=== PATIENT | female | born 1955 | race Caucasian/White ===

== ENCOUNTER → 2016-05-19 | Outpatient (CLI) | payer MEDICAID ==
[~2016-05-19] MED LIST: ACETAMINOPHEN500 M3 PO; ADVIL200 MG OR; AVELOX400 MG PO; BETHANECHOL25 MG PO; BUPROPION HCL100 MG PO; CIPRO 500MG TA500 MG PO; DILAUDID4 MG PO; FLEXERIL10 M1 PO; IPRATROPIUM BROM3 M1 IH; KEFLEX 500MG.500 MG PO; LEVOTHROID0.05 MG PO; LORATADINE 10MG10 M1 PO; MACROBID100 M3 PO; MEDROL 4MG TABLE4 MG PO; MIRAPEX0.5 MG OR; MONODOX100 MG PO; MULTI VITAMINS1 TAB PO; NAPROSYN 500MG500 MG PO; PERCOCET 5/3251 EACH PO; PHENERGAN 25MG.25 M1 PO; PREDNISONE 20MG20 MG PO; PYRIDIUM 200MG200 MG PO; SEPTRA DS 800 M1 TAB PO; SYNTHROID 0.0.075 MG PO; TYLENOL 325MG325 MG PO; ULTRAM50 MG PO; VISTARIL25 M1 PO; VOLTAREN100 GM TP; ZOFRAN4 MG PO
--- NOTE | 2016-05-20 08:31 | RADIOLOGY REPORT PS360 ---
HAND-LT-3 VIEWS HISTORY: Post traumatic pain LEFT HAND PAIN COMPARISON: None FINDINGS: There is generalized osteopenia. Nondisplaced fracture involving the distal aspect of the fifth metacarpal with minimal radial angulation of the distal fracture fragment. Nondisplaced fracture also suspected involving the distal shaft of the fourth metacarpal. Seen only on one view. IMPRESSION: Diffuse osteopenia with nondisplaced fractures of the distal aspect of the fourth and fifth metacarpals
== END ==
LOC: RAD 16:13
DX: M79.642 Pain in left hand (principal)

== ENCOUNTER → 2016-07-01 | Outpatient (CLI) | payer MEDICAID ==
--- NOTE | 2016-07-01 12:52 | RADIOLOGY REPORT PS360 ---
[id number] (PINKY)-3 VIEWS CLINICAL INDICATION: Post traumatic pain S/P FALL, PAIN IN LEFT 5TH DIGIT ORDERING PHYSICIAN: Raul Cota MD PATIENT AGE: 60 years COMPARISON: None FINDINGS: Nondisplaced fracture involving the distal shaft of the fifth metacarpal with mild palmar angulation of the distal fracture fragment. There is generalized osteopenia. IMPRESSION: Nondisplaced fracture fifth metacarpal
== END ==
LOC: RAD 10:25
DX: M79.645 Pain in left finger(s) (principal)

== ENCOUNTER 2016-07-27 15:37 | Emergency (ER) | payer MEDICAID ==
[~2016-07-27] VITALS: Ht 154.9 cm; Wt 64.4 kg
[~2016-07-27 15:37] MED LIST changes: -ACETAMINOPHEN500 M3 PO; -ADVIL200 MG OR; -LORATADINE 10MG10 M1 PO; -NAPROSYN 500MG500 MG PO; -VOLTAREN100 GM TP
--- NOTE | 2016-07-27 16:12 | Urgent Treatment Center Report ---
History of Present Issue Date/Time Seen by Provider 07/27/16 0669 Visit Reason Pt arrived:Wheelchair Presenting Problem:PT C/O LEFT WRIST PAIN AND SWELLING SINCE HER LAST PHYSICAL THERAPY APPT THIS PAST THURSDAY Location if Accident: Onset of symptoms date/time:/ or onset unknown for:MEDICAL HX UNKNOWN Have you (or family members/close friends) recently traveled outside the [place]? N If Yes, where/when: Have you had exposure to infectious disease within the past month? TB? Other? Specify: Source patient, RN notes reviewed, family Exam Limitations no limitations Comment Patient has had left wrist pain and swelling X 4-5 days. States it occurred after PT on 07/24/16. She is going to PT due to a wrist fracture in and hand fracture in 05/02. She has done PT several times before without incident but states that they did change to activities she was doing. Was in pain before leaving PT that day and it has continued to get worse. ALLERGIES Coded Allergies: morphine (Intermediate, I-HIVES 04/21/16) Sulfa (Sulfonamide Antibiotics) (Mild, 04/21/16) latex (Mild, 04/21/16) diazepam (From Valium) (UNKNOWN 04/21/16) Uncoded Allergies: VINYL (UNKNOWN 04/04/15) Home Medications Active Scripts Tramadol Hcl (Ultram 50MG) 50 MG PO QIDP PRN pain #10 TAB Prov: 04/21/16 Reported Medications Levothyroxine Sodium (Levothroid) 0.05 MG PO DAILY PRAMIPEXOLE DI-HCL (Mirapex) 0.5 MG OR History Medical History General CAD? No Angina: Yes NH: No Hypertension? No Hyperlipidemia? No CHF? No DVT? No PE? No COPD? No Asthma? Yes Anemia? No GERD? Yes Gastric ulcers? No GI Bleed? No Hernia? No Thyroid Problems? Yes Hypothyroidism? Yes CVA? No Seizures? No Diabetes? No Renal Insuffiency? No UTI? Yes Stones? Yes GB Disease: Yes Nephritic Syndrome? No Asplenia? No Hepatitis? No Sickle Cell Disease? No Arthritis? Yes Migraines? No Cataracts? No Glaucoma? No MRSA? No HIV? No TB? No Anxiety? No Depression? No Cancer? No More? Yes Additional hx: PARKINSONS Immunization HX DT/Tetanus 1-4 YRS Flu LAST YEAR Pneumonia NEVER Surgical Hx Previous Surgery?Y 4 C-SECTIONS CHOLECTOMY REMOVAL OF ADHESIONS CYST REMOVAL 0F OVARIES SHELDON GALLBLADDER BLADDER SLING L HIP REPAIR Family History Family HX Diabetes Yes CAD No Hypertension Yes Hyperlipidemia Yes Cancer No TB No Social History Smoking Hx Smoker: Never Smoker Tobacco: No Alcohol Alcohol: No Review of Systems All Other Systems Reviewed and Negative Musculoskeletal joint pain, joint swelling Physical Exam Vital Signs Vital Signs Date Time Temp Pulse Resp B/P Pulse O2 O2 Flow FiO2 Ox Delivery Rate 07/27 1558 98.0 83 16 142/83 99 07/27 1541 98.0 83 16 142/83 99 General Appearance normal appearance, no apparent distress Respiratory Status No: respiratory distress, trachea midline, chest symmetrical. Cardiovascular normal exam, regular rate/rhythm, no peripheral edema, no gallop, no JVD, no murmur, no rub Peripheral Pulses Pulses normal Yes Extremities inflammation, swelling, decreased ROM, decreased plastic boat buffer strength left wrist Strength 3 Upper Ext (L) Neurologic alert, normal exam, oriented x 3 Medical Decision Making LABS/Meds/Orders Pt receiving controlled substance in ED? No Results/Orders Orders Procedure Date/time Status WRIST-3 VIEWS-LT 07/27 1612 Active XRAY/CT/US XRAY/CT/US XRAY wrist (left) XR interpretation by reviewed by me Xray Results normal/NAD Departure Departure Time of Disposition 1651 Disposition DC Home or Self Care(routine) Clinical Impression Primary Impression: Wrist pain, left Condition STABLE Referrals Cipriano SALTER,Raul (Family): 2 Days-Call Office Patient Instructions DI for Wrist Pain Additional Instructions Call Dr Schroeder if not improving Discharge Counseling Counseled pt/family regarding diagnosis, test results, medications/RX Comment Call Dr Schroeder if not improving; has wrist splint at home from previous fracture ; discuss with PT Prescriptions Current Visit Scripts NAPROXEN (NAPROSYN 500MG TAB) 500 MG PO BID #20 TAB Diclofenac Sodium (Voltaren) 100 GM TP QIDP PRN PAIN #1 100MG at 1659
[2016-07-27] MEDS ORDERED: NAPROSYN 500MG500 MG PO (16:56)
[2016-07-27] MEDS ORDERED: VOLTAREN100 GM TP (16:56)
[2016-07-27 17:11] VITALS: BP 142/83
--- NOTE | 2016-07-28 15:31 | RADIOLOGY REPORT PS360 ---
WRIST-3 VIEWS-LT ORDERING PHYSICIAN : ODESSA CONTI PATIENT AGE: 60 years GENDER: Female INDICATION: PAIN pain left breast. Hyperextended her wrist on and has been hurting since the skull therapy Left wrist pain TECHNIQUE: 3 view COMPARISON: Multiple previous studies left wrist FINDINGS The patient had a fracture through the radial styloid seen March 2016. Period Fracture this same region is identified today. I suspect reviewing this same fracture but difficult exclude slight additional cortical step-off base radial styloid. On reviewing the frontal projection I believe has the same appearance and articular cortical contour as noted on 07/08/2016 thus most likely stable However if this is the site of patient's pain. I would recommend orthopedic follow-up to further evaluate. Given the patient's osteopenia may want to consider this a CT or MR to follow up if persistent pain at radial styloid region The fat plane anterior aspect the wrist is normal and not elevated on today's study which slightly speaks against acute injury but nonspecific. Normal to upper normal with a scapholunate joint noted. It measures up to 2.5 mm.. Upper normal limits but widening in this region can be reflection of disruption of scapholunate ligament at proximal carpal row Stable mild erosive changes at the ulnar styloid again observed. The carpals are intact. No acute fracture evident. Joint spaces are well-maintained at the carpals and MCP joints. The Old fifth metacarpal fracture again noted with mild residual deformity. .--- Impression 1. No definitive acute fracture or findings. 2. There is slight step-off of articular cortex base of radial styloid.-Most likely old feature reflecting prior fracture in this region & given fairly similar appearance in June 2016 as well as 2016 studies. However if persistent pain at region of radial styloid may warrant further evaluation or follow-up. As Noted above 3.. Prominent diffuse demineralization 4. Old healed fracture neck fifth metacarpal
[2016-08-17] MEDS ORDERED: CIPRO 500MG TA500 MG PO (09:30)
[2016-08-17] MEDS ORDERED: ACETAMINOPHEN500 M3 PO (09:31)
[2016-08-17] MEDS ORDERED: ADVIL200 MG OR (09:31)
[2016-08-17] MEDS ORDERED: LORATADINE 10MG10 M1 PO (09:31)
== END 2016-07-27 17:12 | disposition home or self-care (01) ==
LOC: ER 15:37 → UTC 15:48
DX: M79.642 Pain in left hand (principal); K21.9 Gastro-esophageal reflux disease without esophagitis; G20 Parkinson's disease

== ENCOUNTER → 2016-11-28 | Outpatient (CLI) | payer OTHER ==
[~2016-11-28] MED LIST changes: +ACETAMINOPHEN500 M3 PO; +ADVIL200 MG OR; +LEADER OMEPRAZO20 MG PO; +LORATADINE 10MG10 M1 PO; +MIRAPEX 1 MG TAB1 MG PO; -MIRAPEX0.5 MG OR; +MIRAPEX0.5 MG PO; +NAPROSYN 500MG500 MG PO; +OXYCODONE SR 2020 MG PO; +PROMETHAZINE HC25 M1 PO; +VOLTAREN100 GM TP
--- NOTE | 2016-11-28 17:42 | RADIOLOGY REPORT PS360 ---
LUMBAR SPINE 5 VIEWS Ordering Physician: Beulah Carvajal APRN Patient Age: 61 years: Female HISTORY: LOW BACK PAIN back pain pain both hips back onto show 3 months ago with persistent pain TECHNIQUE: 5 view lumbar spine series FINDINGS There is a wedge compression fracture at L1 with nearly 50% loss of height anteriorly- this wedge compression mainly involving superior endplate. There may be very slight posterior displacement of the superior posterior corner of L1 towards spinal canal reflecting scant retropulsion. This fracture previously seen August 2016 CT. There is slight additional sclerosis at the fracture and it appears fairly stable. No appreciable progression impression Otherwise the remaining vertebral bodies appear intact. There is disc space narrowing L4/5 again noted may be scant 1 mm anterolisthesis of L4 on 5 due to the exuberant prominent facet changes at this level at the left greater the right. L3/4 on this intact with perhaps Scant degenerative retrolisthesis L3-on L4. The stomach device overlying the right hip or buttocks with lead overlying right sacrum again noted. Mild levoscoliosis upper L-spine at L1 Level again noted IMPRESSION: The wedge compression fracture at L1 appears fairly stable. Suggestion of early healing at L1 Mild levoscoliosis L1-L2 again noted Prominent degenerative facet changes to the left greater than right at L4/5 again noted. Slight narrowing at L4/5 disc to the left noted, with scant anterolisthesis of L4 on 5 suggested on plain film
== END ==
LOC: RAD 10:38
DX: M54.5 Low back pain (principal)

== ENCOUNTER 2017-01-10 12:04 | Emergency (ER) | payer OTHER ==
[~2017-01-10] VITALS: Ht 154.9 cm; Wt 61.7 kg
--- NOTE | 2017-01-10 12:30 | Urgent Treatment Center Report ---
History of Present Issue Date/Time Seen by Provider 01/10/17 1229 Visit Reason Pt arrived:Walked Presenting Problem:PT STATES SEVERE BACK PAIN RELATED TO PREVIOUS INJURY ON WHEN SHE FELL AT HOME Location if Accident: Onset of symptoms date/time:/ or onset unknown for:MEDICAL HX UNKNOWN Have you (or family members/close friends) recently traveled outside the [place]? N If Yes, where/when: Have you had exposure to infectious disease within the past month? TB? Other? Specify: Source patient, RN notes reviewed, family Exam Limitations no limitations Comment Patient presents with back pain. Says it has been painful for about two weeks. No inciting injury or event prior to this exacerbation of pain, but did have a fracture of her back in August 2016. This was precipitated by a fall and she states that she was in the hospital for a few weeks at that time. She does have pain medicine at home, but states that it is not helping. ALLERGIES Coded Allergies: morphine (Intermediate, I-HIVES 04/21/16) Sulfa (Sulfonamide Antibiotics) (Mild, 04/21/16) latex (Mild, 04/21/16) diazepam (From Valium) (UNKNOWN 04/21/16) sulfamethoxazole (From BACTRIM) (09/24/16) trimethoprim (From BACTRIM) (09/24/16) Uncoded Allergies: VINYL (UNKNOWN 04/04/15) Home Medications Active Scripts ONDANSETRON HCL (Zofran 4MG Tab) 4 MG PO Q8HP PRN NAUSEA AND VOMITING #20 TAB Prov: 09/24/16 Reported Medications Levothyroxine Sodium (Levothroid) 0.05 MG PO DAILY Pramipexole Dihydrochloride (Mirapex 1 Mg Tablet) 0.75 MG PO TID Oxycodone Hcl Sr (Oxycodone Sr 20MG) 20 MG PO Q6HP PRN PAIN PROMETHAZINE HCL (Promethazine 25mg Tab) 25 MG PO Q8HP PRN NAUSEA Omeprazole 20 MG PO DAILY History Medical History General CAD? No Angina: Yes NE: No Hypertension? No Hyperlipidemia? No CHF? No DVT? No PE? No COPD? No Asthma? Yes Anemia? No GERD? Yes Gastric ulcers? No GI Bleed? No Hernia? No Thyroid Problems? Yes Hypothyroidism? Yes CVA? No Seizures? No Diabetes? No Renal Insuffiency? No UTI? Yes Stones? Yes BPH? No GB Disease: Yes Nephritic Syndrome? No Asplenia? No Hepatitis? No Sickle Cell Disease? No Arthritis? Yes Migraines? No Cataracts? No Glaucoma? No MRSA? No HIV? No TB? No Anxiety? No Depression? No Cancer? No More? Yes Additional hx: PARKINSONS Immunization HX DT/Tetanus 1-4 YRS Flu LAST YEAR Pneumonia NEVER Surgical Hx Previous Surgery?Y 4 C-SECTIONS CHOLECTOMY REMOVAL OF ADHESIONS CYST REMOVAL 0F OVARIES SHELDON GALLBLADDER BLADDER SLING L HIP REPAIR Family History Family HX Diabetes Yes CAD No Hypertension Yes Hyperlipidemia Yes Cancer No TB No Social History Smoking Hx Smoker: Never Smoker Tobacco: No Alcohol Alcohol: No Review of Systems All Other Systems Reviewed and Negative Musculoskeletal back pain Physical Exam Vital Signs Vital Signs Date Time Temp Pulse Resp B/P Pulse O2 O2 Flow FiO2 Ox Delivery Rate 01/10 1356 20 01/10 1218 97.8 102 20 154/90 97 General Appearance normal appearance, no apparent distress Respiratory Status No: respiratory distress, trachea midline, chest symmetrical. Lung Sounds bilateral: normal breath sounds, lungs clear. Cardiovascular normal exam, regular rate/rhythm, no peripheral edema, no gallop, no JVD, no murmur, no rub Back normal inspection, decreased range of motion, lower extremity weakness, vertebral tenderness Extremities non-tender, normal range of motion, normal inspection, normal capillary refill Neurologic alert, normal exam, oriented x 3 Mental status normal mood/affect Medical Decision Making LABS/Meds/Orders Pt receiving controlled substance in ED? No Results/Orders Laboratory Tests 01/10/17 1330: Sodium 139, Potassium 4.3, Chloride 103, Carbon Dioxide 31, BUN 15, Creatinine 0.6, Estimated Creat Clear 93, Estimated GFR (MDRD) 101, Glucose 101, Calcium 10.0 Current Medication Orders Sig/Kaykay Start time Last Medication Dose Route Stop Time Status Admin Ketorolac 30 MG ONCE ONE 01/10 1400 DC 01/10 Tromethamine IM 01/10 1401 1356 Ketorolac 0 .STK-MED ONE 01/10 1354 DC Tromethamine .ROUTE Orders Procedure Date/time Status BASIC METABOLIC PROFILE 01/10 1305 Complete XRAY/CT/US XRAY/CT/US XRAY L-spine XR interpretation by reviewed by me Comment Old wedge compression fracture L1; possible anterolisthesis L5; no acute changes seen Departure Departure Time of Disposition 141 Disposition DC Home or Self Care(routine) Clinical Impression Primary Impression: Back pain Qualifiers: Back pain location: low back pain Chronicity: chronic Back pain laterality: bilateral Sciatica presence: without sciatica Qualified Code: M54.5 - Low back pain Condition STABLE Referrals Raul Cota MD (Family): 2 Days-Call Office Patient Instructions DI for Low Back Pain Additional Instructions F/u With Dr Cota on Thursday. Discuss osteopenia/risk fracture and abnormal appearance of liver on CT in August. Discharge Counseling Counseled pt/family regarding diagnosis, test results, medications/RX, home care, follow up needs at [id number]
--- NOTE | 2017-01-10 13:42 | RADIOLOGY REPORT PS360 ---
EXAM: LUMBAR SPINE 5 VIEWS HISTORY: Low back pain PAIN FROM FALL ON 08/16/16 ORDERING PHYSICIAN: ODESSA GROSSMAN PATIENT AGE: 61 years COMPARISON: 11/28/2016 FINDINGS: Mild levoscoliosis of 15 degrees of the lumbar spine. Moderate wedge compression changes involve L1 vertebral body similar to the previous exam with mild retropulsion of the posterior superior aspect of L1 of approximately 6 mm. There is degenerative disc disease at T12-L1, L2-L3, L4-L5 with facet arthritic changes at L4-5 and L5-S1. No acute fracture or dislocation. No lytic or blastic change. Neurostimulator device is present on the right lung sacrum. IMPRESSION: 1. Chronic wedge compression changes of L1. 2. Lumbar Spondylosis with degenerative disc disease and facet arthritic change. 3. Mild scoliosis convex left of 15 degrees which is somewhat more prominent on today's exam. The study however was performed with the patient upright.
[2017-01-10 14:26] VITALS: BP 154/90
== END 2017-01-10 14:31 | disposition home or self-care (01) ==
LOC: UTC 12:04
PROVIDERS: Emergency Medicine
DX: M54.5 Low back pain (principal); K21.9 Gastro-esophageal reflux disease without esophagitis

== ENCOUNTER 2017-04-06 11:53 | Emergency (ER) | payer OTHER ==
[~2017-04-06] VITALS: Ht 154.9 cm; Wt 61.2 kg
--- OUTSIDE RECORDS SUMMARY | 2017-04-06 11:59 | External Medical Summary Rpt | CCD ---
Demographics Preferred Language Bahamian Marital Status Unknown Sikh Affiliation Unknown Race Unknown Ethnic Group Unknown Author Author , DEISY OLIVAS Address Unknown Phone Immunization No patient found.
--- OUTSIDE RECORDS SUMMARY | 2017-04-06 11:59 | External Medical Summary Rpt | CCD ---
Author Author , DEISY Organization [facility] Address Unknown Phone [email or web address] Care Team Providers Care [employer] Name Role Phone KIMBERLY NAYLOR MD, Unavailable Unavailable KIMBERLY Lopez MD, Unavailable Unavailable Oksana KEY DO, Unavailable Unavailable AGUS KEY DO Purpose Continuity of Care Document - 09-19-2012 through 2016 Problems Code Diagnosis DOS Provider Status 708.0 708.0 07-02-2013 [place] ALLERGIC [facility] URTICARIA [facility] 244.9 244.9 03-19-2013 [place] HYPOTHYROID [facility] IS NOS [facility] 590.80 590.80 03-19-[address] [place] [address] [facility] V13.02 V13.02 03-19-2013 [place] PERSONAL [facility] HISTORY, Hospital URINARY (TRACT) INFECTION V14.8 V14.8 03-19-2013 [place] HX-DRUG [facility] ALLERGY [facility] V58.69 V58.69 OTH 03-19-2013 [place] MED,LT,CURR [facility] ENT USE Hospital 922.1 922.1 09-19-2012 [place] CONTUSION [facility] WALL G20 PARKINSON'S DISEASE I63.9 CEREBRAL INFARCTION, UNSPECIFIED M54.9 DORSALGIA, UNSPECIFIED M79.671 PAIN IN RIGHT FOOT N39.0 URINARY TRACT INFECTION, SITE NOT SPECIFIED R11.2 NAUSEA WITH VOMITING, UNSPECIFIED S32.010A WEDGE COMPRESSION FRACTURE OF FIRST LUMBAR VERTEBRA, INIT Allergies, Adverse Reactions, Alerts Type Allergy to substance Drug Allergy Adverse Reaction to Substance Substance Reaction Severity Latex Unknown Mild VINAL Unknown Unknown Morphine Unknown Unknown Ibuprofen Unknown Unknown Diazepam Unknown Unknown Latex Unknown Mild Medications Na ND Rx Da Fi Fi Am Da Di Ph RX Ph St me C No te ll ll ou ys ag ar # ys at s nt no ma ic us Or Da si cy ia de te s n re d FA 51 02 0 No MO 07 -1 TI 90 5- Lo DI 96 20 ng NE 62 14 er 0 20 Ac ti MG ve TA BL ET HI 00 02 0 No ED 05 -1 NI 40 5- Lo SO 01 20 ng NE 82 14 er 0 20 Ac ti MG ve TA BL ET HY [address] 07 -1 OX 90 5- Lo YZ 07 20 ng IN 72 14 er E 0 PA Ac M ti 25 ve MG CA P SO 00 11 0 No DI 40 -0 UM 97 2- Lo 98 20 ng CH 30 13 er LO 9 RI Ac DE ti ve 0. 9% SO DAVID TI ON Sa 63 11 0 No li 80 -0 ne 70 2- Lo 10 20 ng Fl 07 13 er us 5 h Ac 10 ti ML ve Sy ri ng e AP 00 11 0 No AP 40 -0 /H 60 2- Lo YD 36 20 ng RO 56 13 er CO 2 DO Ac NE ti ve 32 5 MG -5 MG LE 25 11 0 No VO 02 -0 FL 10 2- Lo OX 13 20 ng AC 28 13 er IN 3 Ac 75 ti 0 ve MG /1 50 ML -D 5W Sa 63 11 0 No li 80 -0 ne 70 2- Lo 10 20 ng Fl 07 13 er us 5 h Ac 10 ti ML ve Sy ri ng e AP 00 11 0 No AP 40 -0 /H 60 2- Lo YD 36 20 ng RO 56 13 er CO 2 DO Ac NE ti ve 32 5 MG -5 MG Sa 63 06 0 No li 80 -2 ne 70 1- Lo 10 20 ng Fl 07 13 er us 5 h Ac 10 ti ML ve Sy ri ng e LO 00 06 0 No RA 64 -2 ZE 16 1- Lo PA 04 20 ng M 82 13 er 2 5 MG Ac /M ti L ve AL Po 00 06 0 No ta 24 -2 ss 50 1- Lo iu 05 20 ng m 80 13 er Ch 1 lo Ac ri ti de ve 20 ME Q Ta bl e KE 00 05 0 No TO 40 -0 RO 93 5- Lo LA 79 20 ng C 60 13 er 60 1 Ac MG ti /2 ve ML AL Vital Signs 07-02-2013 17:35 Name Value Interpretat Reference Comment ion Range Body 98.8 [degF] Temperature BP 96 mm[Hg] Diastolic BP Systolic 150 mm[Hg] Heart 78 /min Rate/Pulse O2% 100 % Respiratory 20 /min Rate 07-02-2013 17:24 Name Value Interpretat Reference Comment ion Range BP 96 mm[Hg] Diastolic BP Systolic 136 mm[Hg] Heart 80 /min Rate/Pulse O2% 98 % Respiratory 20 /min Rate 03-19-2013 18:10 Name Value Interpretat Reference Comment ion Range BP 73 mm[Hg] Diastolic BP Systolic 122 mm[Hg] Heart 91 /min Rate/Pulse O2% 99 % Respiratory 20 /min Rate 03-19-2013 16:28 Name Value Interpretat Reference Comment ion Range BP 72 mm[Hg] Diastolic BP Systolic 116 mm[Hg] Heart 96 /min Rate/Pulse O2% 98 % Respiratory 20 /min Rate 11-05-2012 18:34 Name Value Interpretat Reference Comment ion Range Body 98.4 [degF] Temperature BP 74 mm[Hg] Diastolic BP Systolic 120 mm[Hg] Heart 88 /min Rate/Pulse O2% 95 % Respiratory 17 /min Rate 11-05-2012 18:33 Name Value Interpretat Reference Comment ion Range Body 98.4 [degF] Temperature 11-05-2012 17:30 Name Value Interpretat Reference Comment ion Range BP 88 mm[Hg] Diastolic BP Systolic 122 mm[Hg] Heart 98 /min Rate/Pulse O2% 100 % Respiratory 28 /min Rate 09-19-2012 11:45 Name Value Interpretat Reference Comment ion Range Body 97.1 [degF] Temperature BP 76 mm[Hg] Diastolic BP Systolic 109 mm[Hg] Heart 79 /min Rate/Pulse O2% 98 % Respiratory 20 /min Rate 09-19-2012 11:44 Name Value Interpretat Reference Comment ion Range Body 97.1 [degF] Temperature 09-19-2012 10:10 Name Value Interpretat Reference Comment ion Range BP 85 mm[Hg] Diastolic BP Systolic 126 mm[Hg] Heart 92 /min Rate/Pulse O2% 100 % Respiratory 22 /min Rate Results Labs Lab Lab Date Result Refere Interp Status Commen Order Detail nces retati t Range on Bacteria Ur Cult (08-20-2016 23:54) CC XXX NOTAP complet VC-aCnc 017 NOT ed 23:54 APPLICA BLE L Bacteri [id number] complet a XXX 017 2 ed Anaerob 23:54 Enteroc e+Aerob occus e Cult faecali s (organi sm) SCT EF ENTEROC OCCUS FAECALI S L URINALYSIS/COMPLETE (03-19-2013 15:45) URINE YELLOW YELLOW complet COLOR 013 ed 15:45 URINE Cloudy CLEAR complet APPEARA 013 ed NCE 15:45 URINE NEGATIV NEG complet GLUCOSE 013 E ed - 15:45 DIPSTIC K URINE NEGATIV NEG complet BILIRUB 013 E ed IN - 15:45 DIPSTIC K URINE NEGATIV NEG complet KETONE 013 E mg/dL ed 15:45 URINE 1.015 1.005-1 complet SPECIFI 013 UNK .030 ed C 15:45 GRAVITY URINE TRACE-I NEG complet BLOOD 013 NTACT ed 15:45 URINE 6.0 UNK 5.0-8.5 complet PH 013 ed 15:45 URINE NEGATIV NEG complet PROTEIN 013 E mg/dL ed - 15:45 DIPSTIC K URINE 0.2 NEG complet UROBILI 013 E.U./dL ed NOGEN - 15:45 DIPSTIC K URINE POSITIV NEG complet NITRATE 013 E ed - 15:45 DIPSTIC K URINE 2+ NEG complet LEUK 013 ed ESTERAS 15:45 E URINE 20-50 O complet WBC 013 wbc/hpf ed 15:45 URINE 5-10 0-5 complet SQUAMOU 013 #/hpf ed S CELLS 15:45 URINE 3+ O complet BACTERI 013 ed A 15:45 COMPREHENSIVE METABOLIC PANEL (03-19-2013 15:00) Glucose 110 74-106 complet 013 mg/dL ed Bld-mCn 15:00 c BUN 20 7-18 complet Bld-mCn 013 mg/dL ed c 15:00 Creat 0.8 0.6-1.0 complet SerPl-m 013 mg/dL ed Cnc 15:00 GFR 73 59- complet (ESTIMA 013 ML/MIN ed DC) 15:00 Sodium 137 136-145 complet SerPl-s 013 mmoL/L ed Cnc 15:00 Potassi 2 3.5 3.5-5.1 complet um 013 mmoL/L ed SerPl-s 15:00 Cnc Chlorid 2 100 98-107 complet e 013 mmoL/L ed SerPl-s 15:00 Cnc CO2 29 21.0-32 complet SerPl-s 013 mmoL/L .0 ed Cnc 15:00 Calcium 2 8.8 8.5-10. complet 013 mg/dL 1 ed SerPl-m 15:00 Cnc Prot 2 7.0 6.4-8.2 complet SerPl-m 013 gm/dL ed Cnc 15:00 Albumin 3.7 3.4-5.0 complet 013 gm/dL ed SerPl-m 15:00 Cnc Globuli 3.3 1.3-3.2 complet n 013 gm/dL ed Ser-mCn 15:00 c Albumin 2 1.1 UNK 1.1-1.8 complet /Glob 013 ed SerPl-m 15:00 Rto Bilirub 2 1.3 0.2-1.0 complet 013 mg/dL ed SerPl-m 15:00 Cnc AST 03-19-2 20 U/L 15-37 complet SerPl-c 013 ed Cnc 15:00 ALT 03-19-2 43 U/L 30-65 complet SerPl-c 013 ed Cnc 15:00 ALP 2 114 U/L 50-136 complet SerPl-c 013 ed Cnc 15:00 CBC with AUTO DIFF (03-19-2013 14:59) WBC # 11-2 6.6 4.8-10. complet Bld 013 K/MM3 8 ed Auto 14:59 RBC # 03-19-2 4.19 4.2-5.4 complet Bld 013 M/mm3 ed Auto 14:59 Hgb 03-19-2 12.0 12.2-16 complet Bld-mCn 013 g/dL .2 ed c 14:59 Hct Fr 36.5 % 37.0-47 complet Bld 013 .0 ed 14:59 MCV RBC 03-19-2 87.2 fl 82.2-97 complet 013 .8 ed 14:59 MCH RBC 11-02-2 28.6 pg 27-31.2 complet Qn 013 ed Auto 14:59 MEAN 11-02-2 32.8 31.8-35 complet CORPUSC 013 g/dl .4 ed ULAR 14:59 HGB CONC RDW RBC 11-02-2 14.8 % 11.5-17 complet Auto 013 .5 ed 14:59 Platele 11-02-2 289 142-424 complet t Bld 013 K/mm3 ed Ql 14:59 Manual MEAN 11-02-2 7.0 fl 7.4-10. complet PLATELE 013 4 ed T 14:59 VOLUME Granulo 11-02-2 76.3 % 37.0-80 complet cytes 013 .0 ed Fr Bld 14:59 Auto LYMPH % 11-02-2 18.1 % 10-50.0 complet 013 ed 14:59 Monocyt 11-02-2 4.0 % 1.7-9.3 complet es Fr 013 ed Bld 14:59 Auto Eosinop 11-02-2 1.4 % 0.1-12. complet hil Fr 013 0 ed Bld 14:59 Auto Basophi 11-02-2 0.2 % 0.1-2.0 complet ls Fr 013 ed Bld 14:59 Auto Granulo 11-02-2 5.0 1.8-7.8 complet cytes # 013 K/mm3 ed Bld 14:59 Auto Lymphoc 11-02-2 1.2 0.7-4.5 complet ytes Fr 013 K/mm3 ed Bld 14:59 Auto Monocyt 11-02-2 0.3 0.1-1.0 complet es # 013 K/mm3 ed Bld 14:59 Auto Eosinop 11-02-2 0.1 0.0-0.4 complet hil # 013 K/mm3 ed Bld 14:59 Auto Basophi 11-02-2 0.0 0-0.2 complet ls # 013 K/MM3 ed Bld 14:59 Auto BASIC METABOLIC PANEL (11-05-2012 17:29) Glucose 11-05-2 110 74-106 complet 013 mg/dL ed Bld-mCn 17:29 c BUN 11-05-2 13 7-18 complet Bld-mCn 013 mg/dL ed c 17:29 Creat 0621-2 0.9 0.6-1.0 complet SerPl-m 013 mg/dL ed Cnc 17:29 ESTIMAT 21 61 50-200 complet ED 013 ML/MIN ed CREATIN 17:29 HAYDEN CLEARAN CE GFR 64 59- complet (ESTIMA 013 ML/MIN ed DC) 17:29 Sodium 21 138 136-145 complet SerPl-s 013 mmoL/L ed Cnc 17:29 Potassi 3.0 3.5-5.1 complet um 013 mmoL/L ed SerPl-s 17:29 Cnc Chlorid 101 98-107 complet e 013 mmoL/L ed SerPl-s 17:29 Cnc CO2 24 21.0-32 complet SerPl-s 013 mmoL/L .0 ed Cnc 17:29 Calcium 9.9 8.5-10. complet 013 mg/dL 1 ed SerPl-m 17:29 Cnc TROPONIN I (11-05-2012 17:29) TROPONI Less 0.00-0. complet N I 013 than 06 ed 17:29 0.02 ng/mL CBC with AUTO DIFF (11-05-2012 17:29) WBC # 11-05-2 7.4 4.8-10. complet Bld 013 K/MM3 8 ed Auto 17:29 RBC # 11-05-2 4.91 4.2-5.4 complet Bld 013 M/mm3 ed Auto 17:29 Hgb 13.7 12.2-16 complet Bld-mCn 013 g/dL .2 ed c 17:29 Hct Fr 41.3 % 37.0-47 complet Bld 013 .0 ed 17:29 MCV RBC 84.1 fl 82.2-97 complet 013 .8 ed 17:29 MCH RBC 11-05- 27.9 pg 27-31.2 complet Qn 013 ed Auto 17:29 MEAN 21- 33.2 31.8-35 complet CORPUSC 013 g/dl .4 ed ULAR 17:29 HGB CONC RDW RBC 11-05- 14.0 % 11.5-17 complet Auto 013 .5 ed 17:29 Platele 06-21-2 405 142-424 complet t Bld 013 K/mm3 ed Ql 17:29 Manual MEAN -21-2 7.1 fl 7.4-10. complet PLATELE 013 4 ed T 17:29 VOLUME Granulo -21-2 44.1 % 37.0-80 complet cytes 013 .0 ed Fr Bld 17:29 Auto LYMPH % -21-2 47.8 % 10-50.0 complet 013 ed 17:29 Monocyt 06-21-2 5.7 % 1.7-9.3 complet es Fr 013 ed Bld 17:29 Auto Eosinop -21-2 1.6 % 0.1-12. complet hil Fr 013 0 ed Bld 17:29 Auto Basophi 06-21-2 0.8 % 0.1-2.0 complet ls Fr 013 ed Bld 17:29 Auto Granulo 06-21-2 3.3 1.8-7.8 complet cytes # 013 K/mm3 ed Bld 17:29 Auto Lymphoc -21-2 3.6 0.7-4.5 complet ytes Fr 013 K/mm3 ed Bld 17:29 Auto Monocyt 06-21-2 0.4 0.1-1.0 complet es # 013 K/mm3 ed Bld 17:29 Auto Eosinop 06-21-2 0.1 0.0-0.4 complet hil # 013 K/mm3 ed Bld 17:29 Auto Basophi 06-21-2 0.1 0-0.2 complet ls # 013 K/MM3 ed Bld 17:29 Auto Encounters Encounter Start End Date Code Location Performer Type Date Emergency JASMIN KEY DO (ER) 4 16:34 4 17:43 [facility] Emergency JASMIN Lopez MD (ER) 3 14:52 3 18:11 [facility] Emergency JASMIN Lopez MD (ER) 3 18:05 3 18:45 [facility] Emergency JASMIN NAYLOR (ER) 3 10:01 3 11:45 [facility]
--- OUTSIDE RECORDS SUMMARY | 2017-04-06 11:59 | External Medical Summary Rpt | CCD ---
Demographics Preferred Language Belarusian Marital Status Unknown Pentecostal Affiliation Unknown Race Unknown Ethnic Group Unknown Author Author , DEISY OLIVAS Address Unknown Phone Immunization No patient found.
--- OUTSIDE RECORDS SUMMARY | 2017-04-06 11:59 | External Medical Summary Rpt ---
Author Author DEISY Smith, [employer] Organization [employer] Address Unknown Phone Unavailable Results Basic metabolic panel in Blood Observa Value Referen Units Interpr Notes Date tion ce etation Range Urea 7 - 18 mg/dL Normal No Jan 10 nitrogen informati 2016 1:30 [Mass/vol on in PM ume] in source Serum or data Plasma Calcium 8.5 - mg/dL Normal No Jan 10 [Mass/vol 10.1 informati 2016 1:30 ume] in on in PM Serum or source Plasma data Chloride 98 - 107 mmoL/L Normal No Jan 10 [Moles/vo informati 2016 1:30 lume] in on in PM Serum or source Plasma data Carbon 21.0 - mmoL/L Normal No Jan 10 dioxide, 32.0 informati 2016 1:30 total on in PM [Moles/vo source lume] in data Serum or Plasma Creatinin 0.55 - mg/dL Normal No Jan 10 e 1.02 informati 2016 1:30 [Mass/vol on in PM ume] in source Serum or data Plasma Creatinin 50 - 200 ML/MIN Normal No Jan 10 e renal informati 2016 1:30 clearance on in PM source predicted data by Cockcroft -Gault formula Estimated 59- ML/MIN No REFERENCE Jan 10 informati RANGE: 2017 1:30 glomerula on in >60 PM r source ML/MIN/1. filtratio data 73 SQUARE n rate METERSIf (GF this patient is -A merican, then multiply theresult by 1.210. Glucose 74 - 106 mg/dL Normal No Jan 10 [Mass/vol informati 2016 1:30 ume] in on in PM Serum or source Plasma data Potassium 3.5 - 5.1 mmoL/L Normal No Jan 10 informati 2016 1:30 [Moles/vo on in PM lume] in source Serum or data Plasma Sodium 136 - 145 mmoL/L Normal No Jan 10 [Moles/vo informati 2016 1:30 lume] in on in PM Serum or source Plasma data
--- OUTSIDE RECORDS SUMMARY | 2017-04-06 11:59 | External Medical Summary Rpt | CCD ---
Author Author , DEISY Organization [facility] Address Unknown Phone [address] Care Team Providers Care Emergency Medicine Specialist Name Role Phone KIMBERLY NAYLOR MD, Unavailable Unavailable KIMBERLY Lopez MD, Unavailable Unavailable Oksana KEY DO, Unavailable Unavailable AGUS KEY DO Purpose Continuity of Care Document - 09-19-2012 through 2016 Problems Code Diagnosis DOS Provider Status 708.0 708.0 07-02-2013 [place] ALLERGIC [facility] URTICARIA [facility] 244.9 244.9 03-19-2013 [place] HYPOTHYROID [facility] IS NOS [facility] 590.80 590.80 03-19-2013 [place] PYELONEPHRI [facility] V13.02 V13.02 03-19-2013 [place] PERSONAL [facility] HISTORY, Hospital URINARY (TRACT) INFECTION V14.8 V14.8 03-19-2013 [place] HX-DRUG [facility] ALLERGY [facility] V58.69 V58.69 OTH 03-19-2013 [place] MED,LT,CURR [facility] ENT USE Hospital 922.1 922.1 09-19-2012 [place] CONTUSION [facility] CHEST Hospital WALL G20 PARKINSON'S DISEASE I63.9 [...] Ac ti MG ve TA BL ET [place] 00 02 0 No ED 05 -1 [...] NOT ed 23:54 APPLICA BLE L Bacteri [id number] complet a XXX 017 2 ed Anaerob [...] KEY DO (ER) 4 16:34 4 17:43 [facility] Emergency JASMIN Lopez MD (ER) 3 14:52 3 18:11 [facility] Emergency JASMIN Lopez MD (ER) 3 18:05 3 18:45 [facility] Emergency JASMIN NAYLOR (ER) 3 10:01 3 11:45 [facility]
--- NOTE | 2017-04-06 12:32 | Urgent Treatment Center Report ---
History of Present Issue Date/Time Seen by Provider 04/06/17 1216 Visit Reason Pt arrived:Wheelchair Presenting Problem:PT C/O BLADDER PAIN SINCE 0800 Location if Accident: Onset of symptoms date/time:/ or onset unknown for:MEDICAL HX UNKNOWN Have you (or family members/close friends) recently traveled outside the [place]? N If Yes, where/when: Have you had exposure to infectious disease within the past month? TB? Other? Specify: pt in restroom attempting to provide a urine sample the two times prior to now I attempted to see her. Here w/ private sitter c/o severe "either my bladder or my kidney" type pain since around 0800. Hx of parkinson's and UTIs. Bladder stimulator in place. Private sitter reports a hx of pt turning stimulator down at night "so she doesn 't have to get up" and forgetting to turn it back up during the day. Last UTI 2- 3 months ago. Pt isn't sure that is what this is "because I have never had pain like this before". New onset pain around 8am that has been getting more intense since onset. Currently 8/10, dull ache, intermittent but constant around every 2 -3 minutes. Hasn't taken or tried anything for symptoms. pt reports vomiting starting yesterday. Private sitter did not receive that in report and hasn't witnessed vomiting today. Pt denies diarrhea. No known fever. Hx of multiple abdominal surgeries, pt unsure of which ones. Relied on previously charted surgeries for this information. Source patient, private sitter Exam Limitations pain ALLERGIES Coded Allergies: morphine (Intermediate, I-HIVES 04/21/16) Sulfa (Sulfonamide Antibiotics) (Mild, 04/21/16) latex (Mild, 04/21/16) diazepam (From Valium) (UNKNOWN 04/21/16) sulfamethoxazole (From BACTRIM) (09/24/16) trimethoprim (From BACTRIM) (09/24/16) Uncoded Allergies: VINYL (UNKNOWN 04/04/15) Home Medications Active Scripts ONDANSETRON HCL (Zofran 4MG Tab) 4 MG PO Q8HP PRN NAUSEA AND VOMITING #20 TAB Prov: 09/24/16 Reported Medications Levothyroxine Sodium (Levothroid) 0.05 MG PO DAILY Pramipexole Dihydrochloride (Mirapex 1 Mg Tablet) 0.75 MG PO TID Oxycodone Hcl Sr (Oxycodone Sr 20MG) 20 MG PO Q6HP PRN PAIN PROMETHAZINE HCL (Promethazine 25mg Tab) 25 MG PO Q8HP PRN NAUSEA Omeprazole 20 MG PO DAILY History Medical History General CAD? No Angina: Yes LA: No Hypertension? No Hyperlipidemia? No CHF? No DVT? No PE? No COPD? No Asthma? Yes Anemia? No GERD? Yes Gastric ulcers? No GI Bleed? No Hernia? No Thyroid Problems? Yes Hypothyroidism? Yes CVA? No Seizures? No Diabetes? No Renal Insuffiency? No UTI? Yes Stones? Yes BPH? No GB Disease: Yes Nephritic Syndrome? No Asplenia? No Hepatitis? No Sickle Cell Disease? No Arthritis? Yes Migraines? No Cataracts? No Glaucoma? No MRSA? No HIV? No TB? No Anxiety? No Depression? No Cancer? No More? Yes Additional hx: PARKINSONS Immunization HX DT/Tetanus 1-4 YRS Flu LAST YEAR Pneumonia NEVER Surgical Hx Previous Surgery?Y 4 C-SECTIONS CHOLECTOMY REMOVAL OF ADHESIONS CYST REMOVAL 0F OVARIES [place]ON GALLBLADDER BLADDER SLING L HIP REPAIR Family History Family HX Diabetes Yes CAD No Hypertension Yes Hyperlipidemia Yes Cancer No TB No Social History Smoking Hx Smoker: Never Smoker Tobacco: No Alcohol Alcohol: No Review of Systems All Other Systems Reviewed and Negative Constitutional see HPI, denies malaise ("just this morning") Respiratory denies shortness of breath Cardiovascular denies no symptoms reported Gastrointestinal see HPI Genitourinary see HPI, hesitancy ("always"), other (stronger odor, no change color). denies: discharge, dysuria, frequency. Musculoskeletal back pain (chronic, hx of fracture) Skin denies change in color, denies rash Psychiatric/Neurological denies headache, weakness ("always") Physical Exam Vital Signs Vital Signs Date Time Temp Pulse Resp B/P Pulse O2 O2 Flow FiO2 Ox Delivery Rate 04/06 1211 99.1 87 16 148/73 95 General Appearance mild distress (appears weak and uncomfortable) Respiratory Status No: respiratory distress. Cardiovascular no peripheral edema Gastrointestinal soft, no pulsatile mass, abnormal bowel sounds (hyperactive), guarding jian lower quad, right upper quad, mild tenderness RUQ, LLQ; very uncomfortable and in tears w/ RLQ tenderness, suprapubic tenderness w/ difficulty palpating bladder due to discomfort Back CVA tenderness (R), gait abnormality due to tremors and weakness ( Parkinsons) Neurologic alert Skin normal color, warm/dry Medical Decision Making LABS/Meds/Orders Pt receiving controlled substance in ED? No Results/Orders Orders Procedure Date/time Status [facility] URINE DIPSTICK 04/06 1213 Active Progress [facility] Progress Notes 1 Date 04/06/17 Time 1235 Comment Discussed symptoms, exam and ua w/ pt and sitter. Aware of need for further evaluation of abdominal pain and therefore, transfer to ER. Pt initially hesitant due to cost but once the possible differentials were discussed, pt agreeable to transfer. [facility] Progress Notes 2 Date 04/06/17 Time 1237 Comment Report called to CHIP Polanco RN. Room 8 available. Departure Departure Time of Disposition 1237 Disposition Still a Patient Clinical Impression Primary Impression: Right lower quadrant abdominal pain Condition STABLE at 1250
[2017-04-06 12:45] LABS: URINE BILIRUBIN - DIPSTICK NEGATIVE (NEG); URINE BLOOD NEGATIVE (NEG)
--- NOTE | 2017-04-06 13:15 | Emergency Room Report ---
History of Present Illness Time Seen by [id number] Presenting Problem in Triage Pt arrived:Wheelchair Presenting Problem:PT C/O BLADDER PAIN SINCE 0800 Onset of symptoms date/time:/ or onset unknown for:MEDICAL HX UNKNOWN Treatment Prior to Arrival: SPINNING DOFFER Provided by: Sepsis Risk Assessment: Temp: 99.1 B/P: 148/73 MAP: 98 Pulse: 87 Resp: 16 Recent fever? N Clinical Suspician of Infection? N Mental Status: 1 - Regular (Normal Baseline) Sepsis Risk:Low Sepsis Risk Have you (or family members/close friends) recently traveled outside the [place]? N If Yes, where/when: Have you had exposure to infectious disease within the past month? N TB? Other? Specify: Source patient, RN notes reviewed, family, RN/MD Exam Limitations no limitations Comment This is a 61-year-old female patient arriving to the ER from the [facility] after initially checking in for RIGHT lower quadrant abdominal pain. Patient stated that pain started last night, however it's not associated with any fever, nausea, vomiting or diarrhea. The caregiver advised the patient has recently noticeably been abusing her pain medications as well as sleeping pills, reportedly seing her take the sleeping pill at 6:00 AM. The caregiver, although the recommendation of patient's daughter, removed the oxycodone from patient's reach, and is currently monitoring her opioid intake. ALLERGIES Coded Allergies: morphine (Intermediate, I-HIVES 04/21/16) Sulfa (Sulfonamide Antibiotics) (Mild, 04/21/16) latex (Mild, 04/21/16) diazepam (From Valium) (UNKNOWN 04/21/16) sulfamethoxazole (From BACTRIM) (09/24/16) trimethoprim (From BACTRIM) (09/24/16) Uncoded Allergies: VINYL (UNKNOWN 04/04/15) Home Medications Active Scripts ONDANSETRON HCL (Zofran 4MG Tab) 4 MG PO Q8HP PRN NAUSEA AND VOMITING #20 TAB Prov: 09/24/16 Reported Medications Levothyroxine Sodium (Levothroid) 0.05 MG PO DAILY Pramipexole Dihydrochloride (Mirapex 1 Mg Tablet) 0.75 MG PO TID Oxycodone Hcl Sr (Oxycodone Sr 20MG) 20 MG PO Q6HP PRN PAIN PROMETHAZINE HCL (Promethazine 25mg Tab) 25 MG PO Q8HP PRN NAUSEA Omeprazole 20 MG PO DAILY History Medical History General CAD? No Angina: Yes VA: No Hypertension? No Hyperlipidemia? No CHF? No DVT? No PE? No COPD? No Asthma? Yes Anemia? No GERD? Yes Gastric ulcers? No GI Bleed? No Hernia? No Thyroid Problems? Yes Hypothyroidism? Yes CVA? No Seizures? No Diabetes? No Renal Insuffiency? No End Stage Renal Disease? No UTI? Yes Stones? Yes BPH? No GB Disease: Yes Nephritic Syndrome? No Asplenia? No Hepatitis? No Sickle Cell Disease? No Arthritis? Yes Migraines? No Cataracts? No Glaucoma? No MRSA? No HIV? No TB? No Anxiety? No Depression? No Cancer? No More? Yes Additional hx: P[place]INSONS Immunization Hx DT/Tetanus 1-4 YRS Flu LAST YEAR Pneumonia NEVER Surgical Hx Previous Surgery?Y 4 C-SECTIONS CHOLECTOMY REMOVAL OF ADHESIONS CYST REMOVAL 0F OVARIES SHELDON GALLBLADDER BLADDER SLING L HIP REPAIR Family History Family Hx Diabetes Yes CAD No Hypertension Yes Hyperlipidemia Yes Cancer No TB No Social History Smoking Hx Smoker: Never Smoker Tobacco: No Alcohol Alcohol: No Review of Systems All Other Systems Reviewed and Negative Gastrointestinal see HPI, abdominal pain (RUQ) Physical Exam Vital Signs Vital Signs Date Time Temp Pulse Resp B/P Pulse O2 O2 Flow FiO2 Ox Delivery Rate 04/06 1527 98.7 87 18 142/88 95 04/06 1513 18 04/06 1340 18 04/06 1257 99.1 87 16 148/73 95 04/06 1211 99.1 87 16 148/73 95 General Appearance normal appearance, WD/WN, moderate distress Respiratory Status Yes: trachea midline, chest symmetrical, non tender chest. No: respiratory distress. Lung Sounds bilateral: normal breath sounds, lungs clear. Cardiovascular normal exam, regular rate/rhythm, no peripheral edema, no gallop, no JVD, no murmur, no rub, normal peripheral pulses Gastrointestinal normal bowel sounds, soft, no organomegaly, no guarding, no rebound, tenderness (RUQ) Back normal inspection, no CVA tenderness, no vertebral tenderness Extremities non-tender, normal range of motion, normal inspection Neurologic alert, android architect II-XII nml as tested, normal exam, oriented x 3 Mental status normal mood/affect Medical Decision Making LABS/Meds/Orders Pt receiving controlled substance in ED? No Comment 15:00-patient reevaluated, appears in minimal distress, advised of results obtained, need to start antibiotics for her colitis. Patient continues to make repeated requests for additional pain medications, probably related to the fact that she no longer has access to additional opioid at home. Advised patient to follow up with PCP if any further concerns. Results/Orders Laboratory Tests 04/06/17 1325: Sodium 140, Potassium 3.8, Chloride 102, Carbon Dioxide 29, BUN 9, Creatinine 0.6, Estimated Creat Clear 93, Estimated GFR (MDRD) 101, Glucose 94, Calcium 9.4 , Total Bilirubin 0.9, AST 21, ALT 17, Alkaline Phosphatase 106, Total Protein 7.4, Albumin 3.8, Globulin 3.6 H, Albumin/Globulin Ratio 1.1, Amylase 27, Lipase 108, WBC 4.8, RBC 4.22, Hgb 12.2, Hct 36.7 L, MCV 87.0, RDW 13.4, Plt Count 323, MPV 7.5, Gran % 56.4, Gran # 2.7, Lymphocytes % 36.5, Monocytes % 5.0 , Eosinophils % 1.4, Basophils % 0.7, Lymphocytes # 1.8, Monocytes # 0.2, Eosinophils # 0.1, Basophils # 0.0, PUBS MCHC 33.0, MCH 28.7 04/06/17 1250: Opiates Screen NEGATIVE, Urine Methadone Screen NEGATIVE, Barbiturates NEGATIVE, Phencyclidine Screen NEGATIVE, Amphetamines Screen NEGATIVE, Benzodiazepines Screen NEGATIVE, Cocaine Screen NEGATIVE, Marijuana (THC) Screen NEGATIVE, Urine Color YELLOW, Urine Appearance SL CLOUDY, Urine pH 6.5, Ur Specific [place] <= 1.005, Urine Protein NEGATIVE, Urine Ketones NEGATIVE, Urine Blood NEGATIVE, Urine Nitrate NEGATIVE, Urine Bilirubin NEGATIVE, Urine Urobilinogen 0.2, Ur Leukocyte Esterase 1+ H, Urine RBC NONE, Urine WBC 5-10, Ur Squamous Epith Cells 10-20, Urine Renal Cells OCC, Urine Bacteria 4+, Urine Glucose NEGATIVE 04/06/17 1213: Urine Color YELLOW, Urine Appearance CLEAR, Urine pH 7.0, Ur Specific [place] 1.010, Urine Protein NEGATIVE, Urine Ketones NEGATIVE, Urine Blood NEGATIVE, Urine Nitrate NEGATIVE, Urine Bilirubin NEGATIVE, Urine Urobilinogen 0.2, Ur Leukocyte Esterase SMALL, Urine Glucose NEGATIVE Current Medication Orders Sig/Kaykay Start time Last Medication Dose Route Stop Time Status Admin Ketorolac 15 MG ONCE ONE 04/06 1515 DC 04/06 Tromethamine IV 04/06 1516 1513 Ketorolac 0 .STK-MED ONE 04/06 1512 DC Tromethamine .ROUTE Iopamidol 75 ML ONCE ONE 04/06 1430 DCD 04/06 IV 04/06 1431 1421 Iopamidol 75 ML ONCE ONE 04/06 1430 DCD 04/06 IV 04/06 1431 1421 Hydromorphone HCl 0.5 MG ONCE ONE 04/06 1345 DCr 04/06 IV 04/06 1346 1340 Morphine Sulfate 2 MG ONCE ONE 04/06 1345 CANr IV 04/06 1346 Ondansetron HCl 0 .STK-MED ONE 04/06 1339 DC .ROUTE Hydromorphone HCl 0 .STK-MED ONE 04/06 1337 DCr .ROUTE Ondansetron HCl 0 .STK-MED ONE 04/06 1316 DC .ROUTE Sodium Chloride 1,000 ML .STK-MED ONE 04/06 1316 DC IV Ondansetron HCl 4 MG ONCE ONE 04/06 1315 DC 04/06 IV 04/06 1316 1328 Sodium Chloride 1,000 ML .Q1H1M 04/06 1315 DC 04/06 IV 04/06 1415 1328 Sodium Chloride 10 ML PRN PRN 04/06 1315 DCD IV 04/07 1312 Sodium Chloride 10 ML PRN PRN 04/06 1315 DCD IV 04/07 1312 Orders Procedure Date/time Status DIET-NOTHING BY MOUTH 04/06 D Active DRUG ABUSE SCREEN (10) 04/[address] ABD/PELVIS REQ 04/06 1313 Complete IV SALINE LOCK 04/06 1313 Active URINALYSIS/COMPLETE 04/06 1313 Complete LIPASE 04/06 1313 Complete CBC WITH AUTO DIFF 04/06 1313 Complete CHEM 12 PROFILE 04/06 1313 Complete AMYLASE 04/06 1313 Complete CULTURE, URINE 04/06 1250 Active UTC URINE DIPSTICK 04/06 1213 Complete XRAY/CT/US XRAY/CT/US CT abdomen, pelvis (w/ iv dye) CT interpretation by discussed w/radiologist CT Results see radiologist's report, consistent with colitis Departure Departure Time of Disposition 1508 Disposition DC Home or Self Care(routine) Clinical Impression Primary Impression: Colitis Condition STABLE Referrals Raul Cota MD (Family): Tomorrow-Call Office if not better Patient Instructions DI for Colitis Additional Instructions Please continue the pain medications (Oxycodone) available at home. Attached is a prescription for antibiotics (Cipro), please take them as prescribed. If no better follow-up with Dr. Cota in the morning. Discharge Counseling Counseled pt/family regarding diagnosis, test results, medications/RX, home care, follow up needs Comment Please continue the pain medications (Oxycodone) available at home. Attached is a prescription for antibiotics (Cipro), please take them as prescribed. If no better follow-up with Dr. Cota in the morning. Prescriptions Current Visit Scripts Ciprofloxacin HCl (Cipro 500MG TAB) 500 MG PO BID #14 TAB ED Critical Care Critical Care No at 0007
[2017-04-06 13:36] LABS: LYMPH # 1.8 K/mm3 (0.7-4.5); LYMPH % 36.5 % (10-50.0)
[2017-04-06 13:52] LABS: HEMOGLOBIN 12.2 g/dL (12.2-16.2)
[2017-04-06 14:05] LABS: URINE BILIRUBIN - DIPSTICK NEGATIVE (NEG); URINE BLOOD NEGATIVE (NEG)
[2017-04-06 14:15] LABS: AMPHETAMINES/METAMPHETAMINES NEGATIVE ng/mL (<1000)
[2017-04-06 14:23] LABS: URINE RENAL CELLS OCC #/HPF
--- NOTE | 2017-04-06 14:47 | RADIOLOGY REPORT PS360 ---
CT ABD PELVIS W/ CONTRAST CLINICAL INDICATION: Right lower quadrant pain ABD PAIN ORDERING PHYSICIAN: Neo Burrell MD PATIENT AGE: 61 years COMPARISON: 08/02/2014 TECHNIQUE: Axial images obtained with sagittal and coronal reformats. PROCEDURE: Oral Contrast: None IV Contrast: 75 mL [id number] . FINDINGS: There is calcified granuloma in the right lower lobe with minimal fibrotic or atelectatic changes in the right lung base. There are multiple hepatic cysts. There has been a prior cholecystectomy. No biliary dilatation. The spleen, adrenal glands, and pancreas are unremarkable. There is bowel interposition on the right with hepatic flexure anterior to the right lobe of the liver. There has been a prior hysterectomy. No evidence of diverticulitis or appendicitis. There is thickening of the ascending colon and proximal transverse colon which could be due to colitis versus nondistention. No renal calculi or hydronephrosis. There is minimal ectasia of the kidneys and ureters. Urinary bladder is mildly distended. No definite ureteral calculus evident. Moderate to severe wedging involves L1 vertebral body similar to the radiograph of 01/10/2017. Neurostimulator device is noted in the right buttock region with a lead to the intrapelvic area to the sacrum. IMPRESSION: 1. Possible colitis of the ascending and proximal transverse colon. 2. Mild distention of the urinary bladder with mild ectasia of the renal collecting system. No definite obstructing ureteral calculus.
[2017-04-06] MEDS ORDERED: CIPRO 500MG TA500 MG PO (15:10)
[2017-04-06 15:27] VITALS: BP 142/88
== END 2017-04-06 15:28 | disposition home or self-care (01) ==
LOC: UTC 11:53 → ER 11:56 → UTC 11:56 → ER 15:28
PROVIDERS: Emergency Medicine; Nurse Practitioner Family
DX: K52.9 Noninfective gastroenteritis and colitis, unspecified (principal); G20 Parkinson's disease; Z88.2 Allergy status to sulfonamides; Z91.040 Latex allergy status; Z88.6 Allergy status to analgesic agent; I20.8 Other forms of angina pectoris
CPT/HCPCS: J2405; Q9967